=== PATIENT | female | born 1955 | race Caucasian/White ===

== ENCOUNTER → 2017-10-07 | Outpatient (CLI) | payer MEDICAID ==
[~2017-10-07] MED LIST: ASPI-496 PO; CALC-192 PO; CLOP75TA PO; EZET10TA18 PO; FLUC50TA3 PO; FURO20TA3 PO; HYDR-3237 PO; LEVO25TA4 PO; LOSA25TA5 PO; LYSI500T3 PO; METO25TA35 PO; OMNIPAQUE 350 MG/ML, 150 ML BOTTLE ONE; OXYC-302 PO; POTA10TA11 PO; POTA2TAB8 PO; eliquis PO; fluconazole PO; lysine PO; vitamin d3 PO
== END | disposition home or self-care (01) ==
LOC: CFH 11:47
PROVIDERS: ATTEND Specialist
DX: I25.10 Atherosclerotic heart disease of native coronary artery without angina pectoris (principal); N28.89 Other specified disorders of kidney and ureter; K76.0 Fatty (change of) liver, not elsewhere classified; C83.38 Diffuse large B-cell lymphoma, lymph nodes of multiple sites
CPT/HCPCS: 70491; 71260; 74177; 82565; Q9967

== ENCOUNTER → 2017-10-16 | Outpatient (CLI) | payer MEDICAID ==
[~2017-10-16] MED LIST changes: +OMNIPAQUE 350 MG/ML, 100ML BOTTLE ONE; -OMNIPAQUE 350 MG/ML, 150 ML BOTTLE ONE
== END | disposition home or self-care (01) ==
LOC: RAD 12:39
PROVIDERS: ATTEND Specialist
DX: N28.89 Other specified disorders of kidney and ureter (principal); C83.38 Diffuse large B-cell lymphoma, lymph nodes of multiple sites
CPT/HCPCS: 74170; Q9967

== ENCOUNTER → 2018-07-27 | Outpatient (CLI) | payer MEDICARE, MEDICAID ==
[~2018-07-27] MED LIST changes: -LOSA25TA5 PO; +LOSA25TA6 PO
== END | disposition home or self-care (01) ==
LOC: CFH 11:20
PROVIDERS: ATTEND Specialist
DX: I51.5 Myocardial degeneration (principal); C83.38 Diffuse large B-cell lymphoma, lymph nodes of multiple sites
CPT/HCPCS: 74178; Q9967

== ENCOUNTER 2019-04-07 12:17 | Outpatient (CLI) | payer MEDICARE, MEDICAID | END 2019-04-07 23:59 | disposition home or self-care (01) | LOC: CFH 12:17 | PROVIDERS: ATTEND Internal Medicine Hematology & Oncology | DX: C83.38 Diffuse large B-cell lymphoma, lymph nodes of multiple sites (principal); N28.1 Cyst of kidney, acquired | CPT/HCPCS: 76770 ==

== ENCOUNTER → 2020-04-14 | Outpatient (CLI) | payer MEDICARE, MEDICAID ==
[~2020-04-14] MED LIST changes: -EZET10TA18 PO; +EZET10TA70 PO; +LOSA25TA25 PO; -LOSA25TA6 PO
== END | disposition home or self-care (01) ==
LOC: CFH 08:07 → EDSTATUS 09:00
PROVIDERS: ATTEND Internal Medicine Clinical Cardiac Electrophysiology
DX: I67.82 Cerebral ischemia (principal); G31.89 Other specified degenerative diseases of nervous system; R29.810 Facial weakness; I70.0 Atherosclerosis of aorta; I65.29 Occlusion and stenosis of unspecified carotid artery
CPT/HCPCS: 70470; 82565; Q9967

== ENCOUNTER → 2020-09-27 | Outpatient (CLI) | payer MEDICARE, MEDICAID ==
[~2020-09-27] MED LIST changes: +APIX5TAB PO; +ATOR80TA PO; +CHOL10003 PO; +CYAN1TAB29 PO; +FLUC200T4 PO; +FURO-92 PO; +LEVO50TA5 PO; +LOSA50TA14 PO; +LYSI500T25 PO; -OMNIPAQUE 350 MG/ML, 100ML BOTTLE ONE; -OXYC-302 PO; +OXYC1TAB14 PO; +SOTA120T26 PO
[2020-09-27 16:42] LABS: BASOPHILS % (AUTO) 1 % (0-1); EOSINOPHILS % (AUTO) 2 % (1-7); LYMPHOCYTES % (AUTO) 26 % (22-44); MEAN CORPUSCULAR HEMOGLOBIN 33.6 pg (27.0-34.8); MEAN CORPUSCULAR HGB CONC 34.8 g/dL (32.4-35.8); MEAN PLATELET VOLUME 10.5 fL (7.4-10.4); MONOCYTES % (AUTO) 11 % (2-9); NEUTROPHILS % (AUTO) 60 % (42-75); PLATELET COUNT 213 x10^3/uL (130-400); RED BLOOD COUNT 4.73 x10^6/uL (3.82-5.3); RED CELL DISTRIBUTION WIDTH 15.2 % (9.6-15.2)
[2020-09-27 16:49] LABS: MD NO
[2020-09-27 16:51] LABS: ALBUMIN 3.7 g/dL (3.4-5.0); ANION GAP 10 mmol/L (5-15); CALCIUM 8.8 mg/dL (8.5-10.1); CHLORIDE 107 mmol/L (98-107)
[2020-09-27 16:55] LABS: BILIRUBIN,TOTAL 0.9 mg/dL (0.2-1.0); CREATININE 1.02 mg/dL (0.55-1.02)
[2020-09-27 17:31] LABS: ALANINE AMINOTRANSFERASE 51 U/L (12-78)
[2020-09-27 17:34] LABS: ALKALINE PHOSPHATASE 92 U/L (45-117); TOTAL PROTEIN 7.6 g/dL (6.4-8.2)
== END | disposition home or self-care (01) ==
LOC: STAR 14:20
PROVIDERS: ATTEND Orthopaedic Surgery
DX: Z01.812 Encounter for preprocedural laboratory examination (principal); Z20.822 Contact with and (suspected) exposure to COVID-19; T84.030A Mechanical loosening of internal right hip prosthetic joint, initial encounter; M25.551 Pain in right hip; R94.31 Abnormal electrocardiogram [ECG] [EKG]; I25.9 Chronic ischemic heart disease, unspecified
CPT/HCPCS: 80053; 85025; 87081; 87635; 93005

== ENCOUNTER → 2020-10-03 | Outpatient (CLI) | payer MEDICARE, MEDICAID ==
[~2020-10-03] VITALS: Ht 160 cm; Wt 73.0 kg
[~2020-10-03] MED LIST changes: +ACETAMINOPHEN 500 MG TABLET ONE; +ACETAMINOPHEN 500 MG TABLET PO ONE; +CHLORHEXIDINE 15 ML UDC MM ONE; +EPINEPHRINE 1 MG/ML, 1ML ONE; +KETOROLAC 60 MG/2 ML ONE; +LACTATED RINGERS 1,000 ML IV SCH; +METHYLENE BLUE 50 MG/10 ML AMP ONE; +NEOSPORIN OINT, 15GM ONE; +ROPIvacaine/PF 0.2%, 20 ML ONE; +SODIUM CHLORIDE 0.9% 0 ML ONE; +TRANEXAMIC ACID 100 MG/ML, 10ML ONE; +VANCOMYCIN 1,000 MG ONE
[2020-10-03 06:14] VITALS: BP 137/77
== END | disposition home or self-care (01) ==
LOC: ORIP 05:43 → UNDOADMIN 05:43 → EDSTATUS 07:30 → UNDODISIN 07:45 → OUT 08:00
PROVIDERS: ATTEND Orthopaedic Surgery
DX: Z01.818 Encounter for other preprocedural examination (principal); M25.551 Pain in right hip; T84.030A Mechanical loosening of internal right hip prosthetic joint, initial encounter; Y83.8 Other surgical procedures as the cause of abnormal reaction of the patient, or of later complication, without mention of misadventure at the time of the procedure
CPT/HCPCS: 36415; 86850; 86900; J0171; J1885; J2795; J3370; Q9968; J7120